=== PATIENT | female | born 1995 | race Caucasian/White ===

== ENCOUNTER 2016-12-06 04:58 | Emergency (ER) | payer MEDICAID, OTHER ==
[2016-12-06] MEDS ORDERED: Morphine 4 MG/ML Syringe ONE ×2 (05:02→05:16)
[2016-12-06] MEDS ORDERED: Ondansetron 4 MG/2 ML SDV ONE (05:03)
[2016-12-06] MEDS ORDERED: Ondansetron 4 MG/2 ML SDV IVPUSH ONE (05:04)
[2016-12-06] MEDS ORDERED: Morphine 4 MG/ML Syringe IVPUSH ONE (05:05)
[2016-12-06] MEDS ORDERED: Sodium Chloride 0.9% 2.5 ML Syringe FLUSH PRN (05:12)
[2016-12-06] MEDS ORDERED: Sodium Chloride 0.9% 10 ML Syringe FLUSH PRN (05:12)
[2016-12-06] MEDS ORDERED: ceFAZolin 1 GM in Premix Bag 1 BAG IV ONE (05:15)
[2016-12-06] MEDS ORDERED: Diphtheria,Pertussis(Acell),Tetanus Vaccine 0.5 ML Syringe IM ONE (05:15)
[2016-12-06] MEDS ORDERED: Morphine 2 MG/ML Syringe IVPUSH ONE (05:17)
[2016-12-06] MEDS ORDERED: Diphtheria,Pertussis(Acell),Tetanus Vaccine 0.5 ML Syringe ONE (05:18)
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
[2016-12-06 05:34] LABS: CHLORIDE,CL 109 mmol/L (98-110); SODIUM,NA 141 mmol/L (136-146)
[2016-12-06 06:58] VITALS: BP 124/64
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
== END 2016-12-06 05:41 ==
LOC: MW.ED 04:58 → MERGE 04:58 → EDBD 05:10 → MW.ED 05:41
DX: S42.352A Displaced comminuted fracture of shaft of humerus, left arm, initial encounter for closed fracture (principal); S41.102A Unspecified open wound of left upper arm, initial encounter; Z88.0 Allergy status to penicillin; W34.00XA Accidental discharge from unspecified firearms or gun, initial encounter
CPT/HCPCS: 36415; 73060; 80053; 85025; 90471; 90715; 96365; 96375; 99285; J0690; J2270; J2405; 99284

== ENCOUNTER 2017-04-07 09:15 | Emergency (ER) | payer MEDICAID, OTHER ==
[2017-04-07] MEDS ORDERED: Sodium Chloride 0.9% 1,000 ML IV ONE (09:29)
[2017-04-07] MEDS ORDERED: Ondansetron 4 MG/2 ML SDV IVPUSH ONE (09:29)
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
[2017-04-07 09:32] VITALS: BP 124/70
[2017-04-07 10:39] LABS: CHLORIDE,CL 109 mmol/L (98-110); SODIUM,NA 139 mmol/L (136-146)
[2017-04-07] MEDS ORDERED: Iopamidol 755 MG/ML 500 ML Multipack Bottle IVPUSH STA (12:17)
--- NOTE | 2017-04-07 12:49 | CT ---
CT of the abdomen and pelvis with contrast. HISTORY: Pain TECHNIQUE: Axial CT images were obtained of the abdomen and pelvis following administration of 78 mL of Isovue-370 in the right antecubital fossa without complication. Coronal and sagittal reconstructio ns obtained. FINDINGS: The lung bases are clear, no pleural effusion. The liver, spleen, adrenal glands, and pancreas appear normal. The gallbladder is normal. There is no bulky retroperitoneal lymphadenopathy or abdominal ascites. The kidneys enhance and function symmetrically without evidence of obstructive uropathy. There is a c ortical cyst within the lower pole of the left kidney. The large and small bowel are normal in caliber without evidence of obstruction. No focal pericolonic inflammation or stranding. The appendix is normal. The urinary bladder appears normal. Uterus and ov ruben appear grossly normal. No bulky pelvic lymphadenopathy or free pelvic fluid. The visualized osseous structures appear normal. IMPRESSION: 1. No acute findings demonstrated within the abdomen or pelvis.
== END 2017-04-07 13:30 | disposition home or self-care (01) ==
LOC: MW.ED 09:15
DX: R11.2 Nausea with vomiting, unspecified (principal); Z88.0 Allergy status to penicillin; Z77.22 Contact with and (suspected) exposure to environmental tobacco smoke (acute) (chronic)
CPT/HCPCS: 74177; 80053; 80305; 81001; 81025; 85025; 96361; 96374; 99284; J2405; J7040; Q9967; 99282

== ENCOUNTER 2017-06-30 23:05 | Emergency (ER) | payer MEDICAID, OTHER ==
[2017-06-30] MEDS ORDERED: Sodium Chloride 0.9% 10 ML Syringe FLUSH PRN (23:24)
[2017-06-30] MEDS ORDERED: Ondansetron 4 MG/2 ML SDV IVPUSH ONE (23:24)
[2017-06-30] MEDS ORDERED: Ketorolac 30 MG/ML SDV IVPUSH ONE (23:24)
[2017-06-30] MEDS ORDERED: Sodium Chloride 0.9% 1,000 ML IV ONE (23:24)
[2017-06-30] MEDS ORDERED: Sodium Chloride 0.9% 2.5 ML Syringe FLUSH PRN (23:24)
[2017-06-30] MEDS ORDERED: Morphine 2 MG/ML Syringe IVPUSH ONE (23:24)
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
[2017-07-01 00:29] LABS: CHLORIDE,CL 107 mmol/L (98-110); SODIUM,NA 140 mmol/L (136-146)
[2017-07-01 02:10] VITALS: BP 115/80
--- NOTE | 2017-07-03 10:26 | CT ---
EXAM DATE: 06/30/17 PATIENT'S AGE: 21 Patient: TERESA HEWITT Facility: [place], [place] Site . Site : 1995 Study: CT Abdomen/Pelvis [id number]/10/2018 12:44:06 AM Ordering Physician: FRANCIE Final Report: INDICATION: Left flank pain TECHNIQUE: CT abdomen and pelvis without contrast. COMPARISON: 04/07/2017 FINDINGS: Lower chest: Unremarkable. Liver: Unremarkable. Spleen: Unremarkable. Pancreas: Unremarkable. Gallbladder and bile ducts: Possible sludge versus poorly calcified layering gallstones. Adrenal glands: Unremarkable. Kidneys: Right renal upper pole pelviectasis. No left hydronephrosis or discrete nephroureterolithiasis. A left renal cyst again seen. GI tract: Unremarkable. Appendix is normal. Vascular structures: Unremarkable. Lymph nodes: Unremarkable. Miscellaneous: Unremarkable. No free air or significant free fluid. Pelvic Organs: A punctate calcification in the posterior bladder on the right. No discrete uterine abnormality seen. Bones: Unremarkable for age. IMPRESSION: Mild right renal pelviectasis. No left obstructive uropathy or discrete nephroureterolithiasis. A punctate bladder calcification could represent a recently passed ureteral calculus. Dictated by Buddy Grimaldo MD @ 07/01/2017 1:05:04 AM Dictated by: Buddy Grimaldo MD @ 07/01/2017 01:05:25 (Electronic Signature) Report Signed by Proxy. [facility]
== END 2017-07-01 01:20 | disposition home or self-care (01) ==
LOC: MW.ED 23:05
DX: R10.9 Unspecified abdominal pain (principal); F17.210 Nicotine dependence, cigarettes, uncomplicated; Z88.0 Allergy status to penicillin; Z87.442 Personal history of urinary calculi
CPT/HCPCS: 74176; 80053; 81001; 81025; 85025; 87086; 96361; 96374; 96375; 99284; J1885; J2270; J2405; J7040

== ENCOUNTER 2018-09-03 19:43 | Emergency (ER) | payer SELFPAY ==
[2018-09-03] MEDS ORDERED: Proparacaine 0.5% Ophth Soln 15 ML Bottle EYELF STA (20:00)
[2018-09-03 20:01] VITALS: BP 112/70
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
[2018-09-03] MEDS ORDERED: Tetracaine HCl/PF 0.5% 4 ML Bottle ONE (20:22)
[2018-09-03] MEDS ORDERED: Sulfamethoxazole/Trimethoprim 800-160 MG Tab PO ONE (20:52)
[2018-09-03 21:03] LABS: CHLORIDE,CL 106 mmol/L (98-107); SODIUM,NA 141 mmol/L (136-145)
== END 2018-09-03 21:26 | disposition home or self-care (01) ==
LOC: MW.ED 19:43
DX: L03.213 Periorbital cellulitis (principal); F17.210 Nicotine dependence, cigarettes, uncomplicated; Z88.0 Allergy status to penicillin
CPT/HCPCS: 36415; 80053; 85025; 99283; A9270

== ENCOUNTER 2018-09-04 15:39 | Emergency (ER) | payer SELFPAY ==
[2018-09-04 15:53] VITALS: BP 122/70
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
[2018-09-04] MEDS: cefTRIAXone 1 GM in Lidocaine 1% 4 ML IM ONE (16:56)
== END 2018-09-04 17:13 | disposition home or self-care (01) ==
LOC: MW.ED 15:39
DX: L03.213 Periorbital cellulitis (principal); F17.210 Nicotine dependence, cigarettes, uncomplicated; Z88.0 Allergy status to penicillin
CPT/HCPCS: 96372; 99283; J0696; J2001

== ENCOUNTER 2018-09-06 08:38 | Emergency (ER) | payer SELFPAY ==
[2018-09-06 08:57] VITALS: BP 105/63
[2018-09-06] MEDS ORDERED: Ertapenem 1 GM Vial IM SCH (09:00)
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
== END 2018-09-06 09:38 | disposition home or self-care (01) ==
LOC: MW.ED 08:38
DX: L03.213 Periorbital cellulitis (principal); F17.210 Nicotine dependence, cigarettes, uncomplicated; Z88.0 Allergy status to penicillin; Z79.899 Other long term (current) drug therapy
CPT/HCPCS: 96372; 99283; J1335; J2001